=== PATIENT | female | born 1995 | race Caucasian/White ===

== ENCOUNTER 2018-03-09 12:44 | Emergency (ER) | payer OTHER ==
[~2018-03-09] VITALS: Ht 157.5 cm; Wt 59.0 kg
[2018-03-09] MEDS ORDERED: SERT25TA PO (12:50)
--- NOTE | 2018-03-09 12:51 | NUR ---
PT IS IN ROOM #1B. DR MONTANO EVALUATED THE PT.
[2018-03-09] MEDS ORDERED: LORAZEPAM 2 MG/1 ML VIAL ONE (12:53)
[2018-03-09 13:17] LABS: BASOPHILS # (AUTO) 0.1 K/uL (0.0-8.0); EOSINOPHILS # (AUTO) 0.2 K/uL (0.0-0.7); EOSINOPHILS % (AUTO) 2.7 % (0.0-7.0); HEMATOCRIT 37.3 % (31.2-41.9); LYMPHOCYTES # (AUTO) 2.2 K/uL (20.0-40.0); LYMPHOCYTES % (AUTO) 30.6 % (20.5-51.5); MEAN CORPUSCULAR HEMOGLOBIN 29.5 uug (24.7-32.8); MEAN CORPUSCULAR HGB CONC 35 g/dL (32.3-35.6); MEAN CORPUSCULAR VOLUME 84.8 fL (75.5-95.3); MONOCYTES % (AUTO) 14.2 % (0.0-11.0); NEUTROPHILS # (AUTO) 3.6 K/uL (1.8-8.9); NEUTROPHILS % (AUTO) 51.5 % (38.5-71.5); PLATELET COUNT (AUTO) 277 K/uL (179-408); RED BLOOD CELL COUNT(AUTO) 4.39 MIL/uL (3.63-4.92); WHITE BLOOD COUNT (AUTO) 7.1 K/uL (3.8-11.8)
[2018-03-09 13:25] LABS: CREATININE 0.9 mg/dL (0.6-1.3); POTASSIUM 3.7 mmol/L (3.5-5.1)
[2018-03-09] MEDS ORDERED: LORAZEPAM 2 MG/1 ML VIAL IM ONE (13:30)
[2018-03-09 13:31] LABS: BILIRUBIN,DIRECT 0.2 mg/dL (0.0-0.2); BILIRUBIN,TOTAL 1.3 mg/dL (0.2-1.0); TOTAL PROTEIN, SERUM 7.5 g/dL (6.4-8.2)
[2018-03-09 13:59] LABS: THYROID STIMULATING HORMONE 5.804 mIU/mL (0.358-3.740)
[2018-03-09] MEDS ORDERED: PANTOPRAZOLE SODIUM 40 MG TABLET.DR PO ONE ×2 (14:00→14:01)
[2018-03-09] MEDS ORDERED: MAG HYDROX/AL HYDROX/SIMETH 30 ML LIQUID UDC PO ONE (14:00)
[2018-03-09] MEDS ORDERED: MAG HYDROX/AL HYDROX/SIMETH 30 ML LIQUID UDC ONE (14:01)
[2018-03-09] MEDS ORDERED: IOHEXOL 350 100 ML INFUS..BTL ONE (14:24)
[2018-03-09] MEDS ORDERED: SWABABLE VALVE TRANSFER SET EA MC ONE (14:24)
[2018-03-09] MEDS ORDERED: IV NORMAL SALINE 250 ML IV ONE (14:24)
[2018-03-09] MEDS ORDERED: MORPHINE SULFATE 2 MG/1 ML DISP.SYRIN IV ONE (15:15)
[2018-03-09] MEDS ORDERED: ONDANSETRON 4 MG/2 ML VIAL IV ONE (15:15)
[2018-03-09] MEDS ORDERED: MORPHINE SULFATE 4 MG/1 ML DISP.SYRIN ONE (15:21)
[2018-03-09] MEDS ORDERED: ONDANSETRON 4 MG/2 ML VIAL ONE (15:21)
--- NOTE | 2018-03-09 16:39 | NUR ---
PT WAS D/C TO HOME D/C INSTRUCTIONS GIVEN TO THE PT.
[2018-03-09 16:40] VITALS: BP 126/62
== END 2018-03-09 16:41 | disposition home or self-care (01) ==
LOC: ER 12:44
DX: F41.9 Anxiety disorder, unspecified (principal); R06.02 Shortness of breath
CPT/HCPCS: 36415; 71045; 71275; 80048; 80076; 84443; 84484 ×2; 84702; 85025; 85379; 93005 ×2; 96372; 96374; 96375; 99285; A4663; J2060; J2270; J2405; J7050; Q9967; 70030-TC